=== PATIENT | male | born 1970 | race American Indian/Alaskan Native ===

== ENCOUNTER 2018-01-05 14:11 | Inpatient (IN) | payer MEDICAID ==
[2018-01-05] MEDS ORDERED: Lactated Ringers 1,000 ML IV ONE (14:30)
[2018-01-05] MEDS ORDERED: Methocarbamol 750 MG Tab PO STA (15:12)
[2018-01-05] MEDS ORDERED: Methocarbamol 750 MG Tab ONE (15:17)
[2018-01-05] MEDS: Acetaminophen/oxyCODONE 325-10 MG Tab PO PRN ×2 (16:17→22:00)
[2018-01-05] MEDS ORDERED: Acetaminophen/oxyCODONE 325-10 MG Tab ONE (16:21)
[2018-01-05] MEDS: Doxycycline 100 MG Cap PO SCH ×2 (16:30→19:41)
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
[2018-01-05] MEDS: busPIRone 15 MG Tab PO SCH (19:41)
[2018-01-05] MEDS: Sodium Chloride 0.9% 1,000 ML IV SCH (19:42)
[2018-01-06] MEDS: Sodium Chloride 0.9% 1,000 ML IV SCH ×3 (00:33→19:22)
[2018-01-06] MEDS: Acetaminophen/oxyCODONE 325-10 MG Tab PO PRN ×4 (05:11→20:41)
[2018-01-06] MEDS ORDERED: Omeprazole 20 MG Cap.CR ONE (07:13)
[2018-01-06] MEDS ORDERED: busPIRone 10 MG Tab ONE ×2 (07:25→20:34)
[2018-01-06] MEDS: Omeprazole 20 MG Cap.CR PO SCH (07:41)
[2018-01-06] MEDS: busPIRone 15 MG Tab PO SCH ×2 (07:43→20:40)
[2018-01-06] MEDS: Doxycycline 100 MG Cap PO SCH ×2 (07:44→20:40)
[2018-01-06] MEDS: Citalopram 20 MG Tab PO SCH (07:44)
[2018-01-06] MEDS ORDERED: Non-Formulary Medication 1 Each (Omeprazole [Omeprazole] 20 MG) PO SCH (08:00)
--- NOTE | 2018-01-06 10:09 | CR ---
DATE OF SERVICE: 01/05/18 CLINICAL DATA: Collar bone pain LEFT CLAVICLE: There are mild osteoarthritic changes of the AC joint. No acute fracture or dislocation. No lytic or blastic bone lesions. [id number] [facility]
--- NOTE | 2018-01-06 11:33 | PCM.PN ---
- General Info Date of Service: 01/06/18 Subjective Update: This is a 47yo M here for rhabdomylosis. He has slightly improved symptoms but continued severe cramping of muscles. He states he is in good spirits and has no concerns at this time. Functional Status: Reports: Pain Controlled, Tolerating Diet, Urinating - Review of Systems General: Reports: No Symptoms HEENT: Reports: No Symptoms Pulmonary: Reports: No Symptoms Cardiovascular: Reports: No Symptoms Gastrointestinal: Reports: No Symptoms Genitourinary: Reports: No Symptoms Musculoskeletal: Reports: Leg Pain, Other (muscle aches whole body) Neurological: Reports: No Symptoms - Patient Data Vitals - Most Recent: Last Vital Signs Temp 36.4 C 01/06/18 08:00 Pulse 57 L 01/06/18 08:00 Resp 14 01/06/18 08:00 BP 108/79 01/06/18 08:00 Pulse Ox 99 01/06/18 08:00 Weight - Most Recent: 87.18 kg I&O - Last 24 Hours: Intake & Output 01/05/18 01/06/18 01/06/18 22:59 06:59 14:59 Intake Total 2000 Output Total 420 Balance 1580 Lab Results Last 24 Hours: Laboratory Results - last 24 hr 01/05/18 01/05/18 01/05/18 Range/Units 14:55 14:55 16:37 WBC 10.5 (4.0-11.0) K/uL RBC 5.38 (4.50-6.50) M/uL Hgb 16.1 (13.0-18.0) g/dL Hct 44.8 (40.0-54.0) % MCV 83 (76-96) fL MCH 29.9 (27.0-32.0) pg MCHC 35.9 H (31.0-35.0) g/dL RDW 12.5 (11.0-16.0) % Plt Count 221 (150-400) K/uL MPV 8.8 (6.0-10.0) fL Neut % (Auto) 65.0 (45.0-70.0) % Lymph % (Auto) 26.0 (20.0-40.0) % [place] % (Auto) 8.6 (3.0-10.0) % Eos % (Auto) 0.2 L (1.0-5.0) % Baso % (Auto) 0.2 (0.0-0.5) % Neut # (Auto) 6.81 (2.00-7.50) K/uL Lymph # (Auto) 2.72 (1.50-4.00) K/uL [place] # (Auto) 0.90 H (0.20-0.80) K/uL Eos # (Auto) 0.02 L (0.04-0.40) K/uL Baso # (Auto) 0.02 (0.02-0.10) K/uL Sodium 141 (136-145) mmol/L Potassium 4.1 (3.5-5.1) mmol/L Chloride 103 (98-107) mmol/L Carbon Dioxide 27.4 (21.0-32.0) mmol/L Anion Gap 14.7 (5.0-15.0) mmol/L BUN 30 H (8-26) mg/dL Creatinine 0.93 (0.70-1.30) mg/dL Est Cr Clr Drug Dosing TNP Estimated GFR (MDRD) > 60 (>60) MLS/MIN BUN/Creatinine Ratio 32.3 H (6-25) Glucose 93 (74-100) mg/dL Calcium 9.0 (8.5-10.1) mg/dL Total Bilirubin 1.1 H (0.0-1.0) mg/dL AST 193 H (15-37) U/L ALT 117 H (12-78) U/L Alkaline Phosphatase 69 (46-116) U/L Creatine Kinase 6307 H (21-232) U/L Total Protein 7.4 (6.4-8.2) g/dL Albumin 4.2 (3.4-5.0) g/dL Globulin 3.2 (2.2-4.2) g/dL Albumin/Globulin Ratio 1.3 (0.8-2.0) Urine Color Yellow Urine Appearance Clear (CLEAR) Urine pH 5.5 (5.0-8.0) Ur Specific [place] 1.020 (1.003-1.030) Urine Protein Negative (NEGATIVE) mg/dL Urine Glucose (UA) Negative (NEGATIVE) mg/dL Urine Ketones 15 H (NEGATIVE) mg/dL Urine Occult Blood Negative (NEGATIVE) Urine Nitrite Negative (NEGATIVE) Urine Bilirubin Negative (NEGATIVE) Urine Urobilinogen 0.2 (0.2-1.0) E.U./dL Ur Leukocyte Esterase Negative (NEGATIVE) Urine RBC Not seen /HPF Urine WBC Not seen /HPF Ketones Negative (NEGATIVE) 01/05/18 01/05/18 01/06/18 Range/Units 16:58 21:00 07:10 WBC 6.5 D (4.0-11.0) K/uL RBC 4.57 (4.50-6.50) M/uL Hgb 13.9 (13.0-18.0) g/dL Hct 38.9 L (40.0-54.0) % MCV 85 (76-96) fL MCH 30.4 (27.0-32.0) pg MCHC 35.7 H (31.0-35.0) g/dL RDW 12.4 (11.0-16.0) % Plt Count 186 (150-400) K/uL MPV 8.6 (6.0-10.0) fL Neut % (Auto) 53.0 (45.0-70.0) % Lymph % (Auto) 36.4 (20.0-40.0) % [place] % (Auto) 8.9 (3.0-10.0) % Eos % (Auto) 1.4 (1.0-5.0) % Baso % (Auto) 0.3 (0.0-0.5) % Neut # (Auto) 3.45 (2.00-7.50) K/uL Lymph # (Auto) 2.37 (1.50-4.00) K/uL [place] # (Auto) 0.58 (0.20-0.80) K/uL Eos # (Auto) 0.09 (0.04-0.40) K/uL Baso # (Auto) 0.02 (0.02-0.10) K/uL Sodium (136-145) mmol/L Potassium (3.5-5.1) mmol/L Chloride (98-107) mmol/L Carbon Dioxide (21.0-32.0) mmol/L Anion Gap (5.0-15.0) mmol/L BUN (8-26) mg/dL Creatinine (0.70-1.30) mg/dL Est Cr Clr Drug Dosing Estimated GFR (MDRD) (>60) MLS/MIN BUN/Creatinine Ratio (6-25) Glucose (74-100) mg/dL Calcium (8.5-10.1) mg/dL Total Bilirubin (0.0-1.0) mg/dL AST (15-37) U/L ALT (12-78) U/L Alkaline Phosphatase (46-116) U/L Creatine Kinase 5331 H 4407 H (21-232) U/L Total Protein (6.4-8.2) g/dL Albumin (3.4-5.0) g/dL Globulin (2.2-4.2) g/dL Albumin/Globulin Ratio (0.8-2.0) Urine Color Urine Appearance (CLEAR) Urine pH (5.0-8.0) Ur Specific [place] (1.003-1.030) Urine Protein (NEGATIVE) mg/dL Urine Glucose (UA) (NEGATIVE) mg/dL Urine Ketones (NEGATIVE) mg/dL Urine Occult Blood (NEGATIVE) Urine Nitrite (NEGATIVE) Urine Bilirubin (NEGATIVE) Urine Urobilinogen (0.2-1.0) E.U./dL Ur Leukocyte Esterase (NEGATIVE) Urine RBC /HPF Urine WBC /HPF Ketones (NEGATIVE) 01/06/18 Range/Units 07:10 WBC (4.0-11.0) K/uL RBC (4.50-6.50) M/uL Hgb (13.0-18.0) g/dL Hct (40.0-54.0) % MCV (76-96) fL MCH (27.0-32.0) pg MCHC (31.0-35.0) g/dL RDW (11.0-16.0) % Plt Count (150-400) K/uL MPV (6.0-10.0) fL Neut % (Auto) (45.0-70.0) % Lymph % (Auto) (20.0-40.0) % [place] % (Auto) (3.0-10.0) % Eos % (Auto) (1.0-5.0) % Baso % (Auto) (0.0-0.5) % Neut # (Auto) (2.00-7.50) K/uL Lymph # (Auto) (1.50-4.00) K/uL [place] # (Auto) (0.20-0.80) K/uL Eos # (Auto) (0.04-0.40) K/uL Baso # (Auto) (0.02-0.10) K/uL Sodium 143 (136-145) mmol/L Potassium 4.0 (3.5-5.1) mmol/L Chloride 110 H (98-107) mmol/L Carbon Dioxide 27.1 (21.0-32.0) mmol/L Anion Gap 9.9 (5.0-15.0) mmol/L BUN 18 D (8-26) mg/dL Creatinine 0.75 (0.70-1.30) mg/dL Est Cr Clr Drug Dosing TNP Estimated GFR (MDRD) > 60 (>60) MLS/MIN BUN/Creatinine Ratio 24.0 (6-25) Glucose 105 H (74-100) mg/dL Calcium 7.5 L (8.5-10.1) mg/dL Total Bilirubin 0.6 D (0.0-1.0) mg/dL AST 121 H (15-37) U/L ALT 93 H (12-78) U/L Alkaline Phosphatase 52 (46-116) U/L Creatine Kinase 3195 H (21-232) U/L Total Protein 5.5 L (6.4-8.2) g/dL Albumin 3.1 L (3.4-5.0) g/dL Globulin 2.4 (2.2-4.2) g/dL Albumin/Globulin Ratio 1.3 (0.8-2.0) Urine Color Urine Appearance (CLEAR) Urine pH (5.0-8.0) Ur Specific [place] (1.003-1.030) Urine Protein (NEGATIVE) mg/dL Urine Glucose (UA) (NEGATIVE) mg/dL Urine Ketones (NEGATIVE) mg/dL Urine Occult Blood (NEGATIVE) Urine Nitrite (NEGATIVE) Urine Bilirubin (NEGATIVE) Urine Urobilinogen (0.2-1.0) E.U./dL Ur Leukocyte Esterase (NEGATIVE) Urine RBC /HPF Urine WBC /HPF Ketones (NEGATIVE) Med Orders - Current: Current Medications Buspirone HCl (Buspar) 15 mg PO BID [facility] Last Admin: 01/06/18 07:43 Dose: 15 mg Citalopram Hydrobromide (Celexa) 40 mg PO DAILY [facility] Last Admin: 01/06/18 07:44 Dose: 40 mg Doxycycline Hyclate (Vibramycin) 200 mg PO BID [facility] Last Admin: 01/06/18 07:44 Dose: 200 mg Sodium Chloride (Normal Saline) 1,000 mls @ 250 mls/hr IV ASDIRECTED [facility] Last Admin: 01/06/18 00:33 Dose: 500 mls/hr Omeprazole (Omeprazole) 20 mg PO ACBREAKFAST [facility] Last Admin: 01/06/18 07:41 Dose: 20 mg Oxycodone/Acetaminophen (Percocet 325-10 Mg) 1 tab PO Q6H PRN PRN Reason: pain Last Admin: 01/06/18 10:15 Dose: 1 tab Discontinued Medications Buspirone HCl (Buspar) Confirm Administered Dose 20 mg .ROUTE .STK-MED ONE Stop: 01/06/18 07:26 Last Admin: 01/06/18 07:39 Dose: Not Given Lactated Ringer's (Ringers, Lactated) 1,000 mls @ 999 mls/hr IV BOLUS ONE Stop: 01/05/18 15:30 Last Admin: 01/05/18 17:33 Dose: 999 mls/hr Methocarbamol (Robaxin) 750 mg PO NOW STA Stop: 01/05/18 15:13 Last Admin: 01/05/18 15:16 Dose: 750 mg Methocarbamol (Robaxin) Confirm Administered Dose 750 mg .ROUTE .STK-MED ONE Stop: 01/05/18 15:18 Last Admin: 01/05/18 15:16 Dose: Not Given Omeprazole (Omeprazole) Confirm Administered Dose 20 mg .ROUTE .STK-MED ONE Stop: 01/06/18 07:14 Last Admin: 01/06/18 07:39 Dose: Not Given Oxycodone/Acetaminophen (Percocet 325-10 Mg) Confirm Administered Dose 1 tab .ROUTE .STK-MED ONE Stop: 01/05/18 16:22 Last Admin: 01/05/18 16:29 Dose: Not Given - Exam General: Alert, Oriented HEENT: Pupils Equal, Pupils Reactive, EOMI, Other (missing teeth) Neck: Supple Lungs: Clear to Auscultation, Normal Respiratory Effort Cardiovascular: Regular Rate, Regular Rhythm GI/Abdominal Exam: Normal Bowel Sounds Back Exam: Normal Inspection Extremities: Normal Inspection Peripheral Pulses: 2+: Dorsalis Pedis (L), Dorsalis Pedis (R) Skin: Warm, Dry, Intact Neurological: No New Focal Deficit - Problem List & Annotations (1) Dehydration SNOMED Code(s): 84132333 Code(s): E86.0 - DEHYDRATION Status: Resolved Priority: High Current Visit: Yes (2) Muscle pain SNOMED Code(s): 98528234 Code(s): M79.1 - MYALGIA Status: Acute Priority: High Current Visit: Yes (3) Rhabdomyolysis SNOMED Code(s): 774602434 Code(s): M62.82 - RHABDOMYOLYSIS Status: Acute Priority: High Current Visit: Yes Qualifiers: Rhabdomyolysis type: non-traumatic Qualified Code(s): M62.82 - Rhabdomyolysis - Problem List Review Problem List Initiated/Reviewed/Updated: Yes - My Orders Last 24 Hours: My Active Orders 01/05/18 16:10 Acetaminophen/oxyCODONE [Percocet 325-10 MG] 1 tab PO Q6H PRN 01/05/18 16:15 Doxycycline [Vibramycin] 200 mg PO BID 01/05/18 16:37 URINALYSIS W/MICROSCOPIC [UA W/MICROSCOPIC] [URIN] Stat 01/05/18 16:49 Patient Status [ADT] Routine Oxygen Therapy [RC] PRN Vital Signs [RC] Q4H Resuscitation Status Routine 01/05/18 17:00 Sodium Chloride 0.9% [Normal Saline] 1,000 ml IV ASDIRECTED 01/05/18 20:00 busPIRone [Buspar] 15 mg PO BID 01/05/18 21:00 HEPATITIS PANEL (4) Stat 01/05/18 Dinner Heart Healthy Diet [DIET] 01/06/18 07:00 Omeprazole 20 mg PO ACBREAKFAST 01/06/18 08:00 Citalopram [Celexa] 40 mg PO DAILY 01/07/18 05:11 CBC WITH AUTO DIFF [HEME] AM COMPREHENSIVE METABOLIC PN,CMP [CHEM] AM CREATINE KINASE,CK [CHEM] Routine - Plan Plan:: Patient will be on IVF at a slightly higher maintenance dose at this time. We will recheck and monitor trending CK levels and AST/ALT levels. Continue pain management. F/u in AM.
[2018-01-06] MEDS: Nicotine 14 MG/24 Hr Patch TRDERM SCH (20:39)
[2018-01-07] MEDS: Acetaminophen/oxyCODONE 325-10 MG Tab PO PRN ×3 (00:46→11:49)
[2018-01-07] MEDS: Sodium Chloride 0.9% 1,000 ML IV SCH (02:28)
[2018-01-07] MEDS: Omeprazole 20 MG Cap.CR PO SCH (06:35)
[2018-01-07] MEDS ORDERED: busPIRone 10 MG Tab ONE (07:40)
[2018-01-07] MEDS: Nicotine 14 MG/24 Hr Patch TRDERM SCH (07:45)
[2018-01-07] MEDS: busPIRone 15 MG Tab PO SCH (07:46)
[2018-01-07] MEDS: Doxycycline 100 MG Cap PO SCH (07:47)
[2018-01-07] MEDS: Citalopram 20 MG Tab PO SCH (07:47)
--- NOTE | 2018-01-07 14:10 | PCM.DCSUM1 ---
Discharge Summary - Hospital Course Brief History: This is a 47yo M admitted for Rhabdomyolysis after developing severe muscle cramps when his car broke down and he walked close to 100 miles. - Discharge Data Discharge Date: 01/07/18 Discharge Disposition: Home, Self-Care 01 Condition: Fair - Discharge Diagnosis/Problem(s) (1) Dehydration SNOMED Code(s): 62697578 ICD Code: E86.0 - DEHYDRATION Status: Resolved Priority: High Current Visit: Yes (2) Muscle pain SNOMED Code(s): 29264639 ICD Code: M79.1 - MYALGIA Status: Acute Priority: High Current Visit: Yes (3) Rhabdomyolysis SNOMED Code(s): 466680554 ICD Code: M62.82 - RHABDOMYOLYSIS Status: Acute Priority: High Current Visit: Yes Qualifiers: Rhabdomyolysis type: non-traumatic Qualified Code(s): M62.82 - Rhabdomyolysis - Patient Instructions Diet: Usual Diet as Tolerated Activity: As Tolerated, No Strenuous Activities - Discharge Plan Prescriptions/Med Rec: busPIRone [Buspar] 15 mg PO BID #60 tablet Citalopram [Citalopram HBr] 40 mg PO DAILY #30 tablet Doxycycline [Vibramycin] 200 mg PO BID #20 cap Nicotine [Habitrol] 7 mg TRDERM DAILY #30 patch Omeprazole 20 mg PO DAILY #30 tablet. Home Medications: Home Meds Citalopram [Citalopram HBr] 40 mg PO DAILY #30 tablet 01/07/18 [Rx] Doxycycline [Vibramycin] 200 mg PO BID #20 cap 01/07/18 [Rx] Nicotine [Habitrol] 7 mg TRDERM DAILY #30 patch 01/07/18 [Rx] Omeprazole 20 mg PO DAILY #30 tablet. 01/07/18 [Rx] busPIRone [Buspar] 15 mg PO BID #60 tablet 01/07/18 [Rx] Patient Handouts: Rhabdomyolysis, Rehydration, Adult Forms: ED Department Discharge Referrals: PCP,None [Primary Care Provider] - - Discharge Summary/Plan Comment Discharge Summary/Plan Comment: Counseled on discharge and follow up with PCP. Patient meds sent to Pharmacy. Discussed hydration and close f/u with provider. - General Info Date of Service: 01/07/18 Subjective Update: Patient feeling better. He has mild muscle tenderness. Denies any chest pain , no shortness of breath and no other complaints. Functional Status: Reports: Pain Controlled, Tolerating Diet, Ambulating, Urinating - Review of Systems General: Reports: No Symptoms HEENT: Reports: No Symptoms Pulmonary: Reports: No Symptoms Cardiovascular: Reports: No Symptoms Gastrointestinal: Reports: No Symptoms Genitourinary: Reports: No Symptoms Musculoskeletal: Reports: Shoulder Pain, Back Pain, Leg Pain Skin: Reports: No Symptoms Neurological: Reports: No Symptoms - Patient Data Vitals - Most Recent: Last Vital Signs Temp 36.5 C 01/07/18 08:00 Pulse 55 L 01/07/18 08:00 Resp 18 01/07/18 08:00 BP 121/85 01/07/18 08:00 Pulse Ox 100 01/07/18 08:00 Weight - Most Recent: 87.18 kg I&O - Last 24 hours: Intake & Output 01/06/18 01/07/18 01/07/18 22:59 06:59 14:59 Intake Total 1732 Output Total 675 Balance -675 1732 Lab Results - Last 24 hrs: Laboratory Results - last 24 hr 01/07/18 01/07/18 Range/Units 07:15 07:15 WBC 6.3 (4.0-11.0) K/uL RBC 4.48 L (4.50-6.50) M/uL Hgb 13.5 (13.0-18.0) g/dL Hct 38.0 L (40.0-54.0) % MCV 85 (76-96) fL MCH 30.1 (27.0-32.0) pg MCHC 35.5 H (31.0-35.0) g/dL RDW 12.3 (11.0-16.0) % Plt Count 191 (150-400) K/uL MPV 8.9 (6.0-10.0) fL Neut % (Auto) 52.3 (45.0-70.0) % Lymph % (Auto) 38.1 (20.0-40.0) % [place] % (Auto) 7.7 (3.0-10.0) % Eos % (Auto) 1.6 (1.0-5.0) % Baso % (Auto) 0.3 (0.0-0.5) % Neut # (Auto) 3.31 (2.00-7.50) K/uL Lymph # (Auto) 2.41 (1.50-4.00) K/uL [place] # (Auto) 0.49 (0.20-0.80) K/uL Eos # (Auto) 0.10 (0.04-0.40) K/uL Baso # (Auto) 0.02 (0.02-0.10) K/uL Sodium 144 (136-145) mmol/L Potassium 4.1 (3.5-5.1) mmol/L Chloride 109 H (98-107) mmol/L Carbon Dioxide 29.0 (21.0-32.0) mmol/L Anion Gap 10.1 (5.0-15.0) mmol/L BUN 10 D (8-26) mg/dL Creatinine 0.75 (0.70-1.30) mg/dL Est Cr Clr Drug Dosing TNP Estimated GFR (MDRD) > 60 (>60) MLS/MIN BUN/Creatinine Ratio 13.3 (6-25) Glucose 104 H (74-100) mg/dL Calcium 7.8 L (8.5-10.1) mg/dL Total Bilirubin 0.4 D (0.0-1.0) mg/dL AST 95 H (15-37) U/L ALT 100 H (12-78) U/L Alkaline Phosphatase 51 (46-116) U/L Creatine Kinase 1644 H (21-232) U/L Total Protein 5.7 L (6.4-8.2) g/dL Albumin 3.2 L (3.4-5.0) g/dL Globulin 2.5 (2.2-4.2) g/dL Albumin/Globulin Ratio 1.3 (0.8-2.0) MARGE Results - Last 24 hrs: Microbiology 01/05/18 Unknown MRSA Surveillance Culture - Final Nasal, Left NO MRSA ISOLATED Med Orders - Current: Current Medications Buspirone HCl (Buspar) 15 mg PO BID [facility] Last Admin: 01/07/18 07:46 Dose: 15 mg Citalopram Hydrobromide (Celexa) 40 mg PO DAILY [facility] Last Admin: 01/07/18 07:47 Dose: 40 mg Doxycycline Hyclate (Vibramycin) 200 mg PO BID [facility] Last Admin: 01/07/18 07:47 Dose: 200 mg Sodium Chloride (Normal Saline) 1,000 mls @ 150 mls/hr IV ASDIRECTED [facility] Last Admin: 01/07/18 02:28 Dose: 150 mls/hr Nicotine (Habitrol) 14 mg TRDERM DAILY [facility] Last Admin: 01/07/18 07:45 Dose: 14 mg Omeprazole (Omeprazole) 20 mg PO ACBREAKFAST [facility] Last Admin: 01/07/18 06:35 Dose: 20 mg Oxycodone/Acetaminophen (Percocet 325-10 Mg) 1 tab PO Q4H PRN PRN Reason: pain Last Admin: 01/07/18 11:49 Dose: 1 tab Discontinued Medications Buspirone HCl (Buspar) Confirm Administered Dose 20 mg .ROUTE .STK-MED ONE Stop: 01/06/18 07:26 Last Admin: 01/06/18 07:39 Dose: Not Given Buspirone HCl (Buspar) Confirm Administered Dose 20 mg .ROUTE .STK-MED ONE Stop: 01/06/18 20:35 Last Admin: 01/06/18 20:42 Dose: Not Given Buspirone HCl (Buspar) Confirm Administered Dose 20 mg .ROUTE .STK-MED ONE Stop: 01/07/18 07:41 Last Admin: 01/07/18 07:48 Dose: Not Given Lactated Ringer's (Ringers, Lactated) 1,000 mls @ 999 mls/hr IV BOLUS ONE Stop: 01/05/18 15:30 Last Admin: 01/05/18 17:33 Dose: 999 mls/hr Methocarbamol (Robaxin) 750 mg PO NOW STA Stop: 01/05/18 15:13 Last Admin: 01/05/18 15:16 Dose: 750 mg Methocarbamol (Robaxin) Confirm Administered Dose 750 mg .ROUTE .STK-MED ONE Stop: 01/05/18 15:18 Last Admin: 01/05/18 15:16 Dose: Not Given Omeprazole (Omeprazole) Confirm Administered Dose 20 mg .ROUTE .STK-MED ONE Stop: 01/06/18 07:14 Last Admin: 01/06/18 07:39 Dose: Not Given Oxycodone/Acetaminophen (Percocet 325-10 Mg) 1 tab PO Q6H PRN PRN Reason: pain Last Admin: 01/06/18 10:15 Dose: 1 tab Oxycodone/Acetaminophen (Percocet 325-10 Mg) Confirm Administered Dose 1 tab .ROUTE .STK-MED ONE Stop: 01/05/18 16:22 Last Admin: 01/05/18 16:29 Dose: Not Given - Exam General: Reports: Alert, Oriented, Cooperative HEENT: Reports: Pupils Equal, Pupils Reactive, EOMI Neck: Reports: Supple Lungs: Reports: Clear to Auscultation, Normal Respiratory Effort Cardiovascular: Reports: Regular Rate, Regular Rhythm GI/Abdominal Exam: Normal Bowel Sounds Extremities: Normal Inspection Skin: Reports: Warm, Dry, Intact Neurological: Reports: No New Focal Deficit
[2018-01-08 07:19] LABS: HBSAG SCREEN Negative (Negative); HEP A AB, IGM Negative (Negative); HEP B CORE AB, IGM Negative (Negative); HEP C VIRUS AB <0.1 s/co ratio (0.0-0.9)
== END 2018-01-07 12:40 | disposition home or self-care (01) | DRG 558 ==
LOC: LB.ED 14:11 → LB.MS 16:49
PROVIDERS: ADMIT Family Medicine; ATTEND Family Medicine
DX: M62.82 Rhabdomyolysis (principal); E86.0 Dehydration; M79.1 Myalgia; M54.9 Dorsalgia, unspecified; H91.90 Unspecified hearing loss, unspecified ear; I10 Essential (primary) hypertension; M19.90 Unspecified osteoarthritis, unspecified site; G89.29 Other chronic pain; M54.2 Cervicalgia; F32.9 Major depressive disorder, single episode, unspecified; F43.10 Post-traumatic stress disorder, unspecified; D75.1 Secondary polycythemia; F41.0 Panic disorder [episodic paroxysmal anxiety]; F17.200 Nicotine dependence, unspecified, uncomplicated; Z88.0 Allergy status to penicillin; Z88.8 Allergy status to other drugs, medicaments and biological substances; Z79.899 Other long term (current) drug therapy
CPT/HCPCS: 36415; 73000-LT; 80053; 80074; 81001; 82009; 82550; 85025; 96360; 99285-25; A9270-GY; J7030; J7120